=== PATIENT | male | born 1950 | race Caucasian/White ===

== ENCOUNTER 2022-12-30 10:41 | Outpatient (CLI) | payer MEDICARE, OTHER | END 2022-12-30 10:42 | disposition home or self-care (01) | LOC: CSHRAD 10:41 | PROVIDERS: ATTEND Neurological Surgery | DX: M47.22 Other spondylosis with radiculopathy, cervical region (principal); Z98.890 Other specified postprocedural states | CPT/HCPCS: 72040 ==

== ENCOUNTER 2023-02-16 14:02 | Outpatient (CLI) | payer MEDICARE, OTHER | END 2023-02-16 14:03 | disposition home or self-care (01) | LOC: CSHRAD 14:02 | PROVIDERS: ATTEND Neurological Surgery | DX: M54.12 Radiculopathy, cervical region (principal); Z98.1 Arthrodesis status | CPT/HCPCS: 72040 ==